=== PATIENT | male | born 1945 | race Native Hawaiian/Other Pacific Islander ===

== ENCOUNTER 2017-06-05 21:16 | Inpatient (IN) | payer MEDICARE, OTHER ==
[2017-06-05] MEDS ORDERED: Sodium Chloride 0.9% 1,000 ML IV ONE (21:36)
[2017-06-05] MEDS ORDERED: Pantoprazole 80 MG in Sodium Chloride 0.9% 100 ML IV STA (21:36)
--- NOTE | 2017-06-05 21:36 | C.PDOC ---
History Of Present Illness Patient presents to the ER with a complaint of bright red blood per rectum since yesterday. Patient is currently on xarelto for a-fib and notes he has a Hx of gastric ulcers. Denies fever, chills, nausea, or vomiting. Time Seen by Provider: 06/05/17 21:29 Chief Complaint (Nursing): GI Problem History Per: Patient History/Exam Limitations: no limitations Onset/Duration Of Symptoms: Days Current Symptoms Are (Timing): Still Present Number Of Bleeding Episodes: Multiple: Severity: Moderate Pain Scale Rating Of: 4 (Discomfort) Quality Of Discomfort: Unable To Describe Associated Symptoms: Rectal Bleeding. denies: Nausea, Vomiting Modifying Factors: None Recent travel outside of the [place]: No Past Medical History Reviewed: Historical Data, Nursing Documentation, Vital Signs Vital Signs: Last Vital Signs Temp 98.6 F 06/05/17 21:28 Pulse 67 06/05/17 22:50 Resp 20 06/05/17 22:50 BP 133/80 06/05/17 22:50 Pulse Ox 97 06/05/17 22:50 - Medical History PMH: Atrial Fibrillation, Gastrointestinal Ulcer, Hyperlipidemia, Kidney Stones (2002) Surgical History: No Surg Hx Family History: States: No Known Family Hx - Social History Hx Alcohol Use: No Hx Substance Use: No - Immunization History Hx Tetanus Toxoid Vaccination: No Hx Influenza Vaccination: No Hx Pneumococcal Vaccination: No Review Of Systems Constitutional: Negative for: Fever, Chills Eyes: Negative for: Redness ENT: Negative for: Throat Pain Cardiovascular: Negative for: Palpitations Respiratory: Negative for: Shortness of Breath Gastrointestinal: Positive for: Other (Rectal bleed). Negative for: Nausea, Vomiting Genitourinary: Negative for: Dysuria Musculoskeletal: Negative for: Back Pain Skin: Negative for: Rash, Lesions Neurological: Negative for: Weakness Psych: Negative for: Anxiety Physical Exam - Physical Exam Appears: Non-toxic Skin: Warm, Dry Head: Normacephalic Eye(s): bilateral: Normal Inspection, PERRL, EOMI Oral Mucosa: Moist Neck: Trachea Midline, Supple Chest: Symmetrical, No Tenderness Cardiovascular: Rhythm Regular Respiratory: No Rales, No Rhonchi, No Wheezing Gastrointestinal/Abdominal: Soft, No Tenderness Rectal: Heme Positive, No Hemorrhoids, No Tenderness, Other (Bright red blood in the vault) Back: No CVA Tenderness Extremity: Normal ROM Extremity: Bilateral: Atraumatic, Normal Color And Temperature, Normal ROM Pulses: Left Dorsalis Pedis: Normal, Right Dorsalis Pedis: Normal Neurological/Psych: Oriented x3, Normal Speech, Normal Cognition Gait: Steady ED Course And Treatment - Laboratory Results Result Diagrams: 06/05/17 21:44 06/05/17 21:44 ECG: Interpreted By Me, Viewed By Me ECG Rhythm: Sinus Rhythm (74), 1st Degree HB, Nonspecific Changes (pac's) O2 Sat by Pulse Oximetry: 97 (Room air) Pulse Ox Interpretation: Normal Progress Note: EKG, blood work, CXR, urinalysis, and occult blood stool test ordered. Protonix and IV fluids administered. Disposition Discussed With Dr.: Ki Bourne Comment: accepted the pt on his service and took over the care at 11PM Doctor Will See Patient In The: Hospital Counseled Patient/Family Regarding: Studies Performed, Diagnosis - Disposition Disposition: HOSPITALIZED Disposition Time: 21:36 Condition: FAIR Forms: [facility] (Dutch) - POA Present On Arrival: None - Clinical Impression Clinical Impression: Rectal bleed - Scribe Statement The provider has reviewed the documentation as recorded by the Scribe Bird Bonner All medical record entries made by the Scribe were at my direction and personally dictated by me. I have reviewed the chart and agree that the record accurately reflects my personal performance of the history, physical exam, medical decision making, and the department course for this patient. I have also personally directed, reviewed, and agree with the discharge instructions and disposition. Decision To Admit - Pt Status Changed To: Hospital Disposition Of: Observation - . Bed Request Type: Regular Admitting Physician: Ki Bourne Patient Diagnosis: Rectal bleed
[2017-06-05 21:50] LABS: BASO # 0.1 K/uL (0.0-0.2); BASO % 0.7 % (0.0-2.0); EOS # 0.1 K/uL (0.0-0.7); EOS % 1.6 % (0.0-4.0); HEMATOCRIT 40.3 % (35.0-51.0); LYMPH # 1.2 K/uL (1.0-4.3); LYMPH % 17.3 % (20.0-40.0); MEAN CELL VOLUME 71.1 fL (80.0-94.0); MEAN CORPUSCULAR HEMOGLOBIN 22.4 pg (27.0-31.0); MEAN CORPUSCULAR HGB CONC 31.4 g/dL (33.0-37.0); MEAN PLATELET VOLUME 8.2 fL (7.2-11.7); MONO # 0.6 K/uL (0.0-0.8); MONO % 8.1 % (0.0-10.0)
[2017-06-05 21:53] LABS: WHITE BLOOD COUNT 7.2 K/uL (4.8-10.8)
[2017-06-05 21:57] LABS: CHLORIDE 103 mmol/L (98-107); POTASSIUM 4.8 mmol/L (3.6-5.2); SODIUM 138 mmol/L (132-148)
[2017-06-05 21:59] LABS: BILIRUBIN,TOTAL 0.7 mg/dL (0.2-1.3); GFR AFRICAN-AMERICAN > 60
[2017-06-05 22:00] LABS: ALB/GLOB RATIO 1.4 (1.0-2.1); ALKALINE PHOSPHATASE 31 U/L (38-126); ALT/SGPT 31 U/L (21-72); AST/SGOT 31 U/L (17-59); BLOOD UREA NITROGEN 20 mg/dL (9-20); CALCIUM 9.1 mg/dl (8.6-10.4); CARBON DIOXIDE 25 mmol/L (22-30); GLUCOSE,RANDOM 97 mg/dL (75-110); INR 2.2
[2017-06-06 00:32] LABS: RBC URINE 3 /hpf (0-3); URINE BILIRUBIN NEGATIVE (NEGATIVE); URINE BLOOD 2+ (NEGATIVE); URINE COLOR Straw (YELLOW); URINE GLUCOSE (UA) NORMAL (Normal); URINE KETONE NEGATIVE (NEGATIVE); URINE LEUKOCYTE ESTERASE NEG Leu/uL (Negative); URINE PROTEIN NEGATIVE (NEGATIVE); URINE UROBILINOGEN NORMAL mg/dL (0.2-1.0); WBC URINE < 1 /hpf (0-5)
[2017-06-06 08:05] LABS: BASO % 0.8 % (0.0-2.0); EOS # 0.1 K/uL (0.0-0.7); EOS % 1.9 % (0.0-4.0); HEMATOCRIT 35.9 % (35.0-51.0); LYMPH # 1.4 K/uL (1.0-4.3); MEAN CELL VOLUME 71.1 fL (80.0-94.0); MEAN CORPUSCULAR HEMOGLOBIN 22.6 pg (27.0-31.0); MEAN CORPUSCULAR HGB CONC 31.8 g/dL (33.0-37.0); MEAN PLATELET VOLUME 8.2 fL (7.2-11.7); MONO # 0.4 K/uL (0.0-0.8); MONO % 8.3 % (0.0-10.0); RED CELL DISTRIBUTION WIDTH 14.9 % (11.5-14.5); WHITE BLOOD COUNT 5.2 K/uL (4.8-10.8)
--- NOTE | 2017-06-06 09:23 | RAD ---
PROCEDURE: CHEST RADIOGRAPH, 1 VIEW HISTORY: GI Bleeding COMPARISON: 06/05/2017 FINDINGS: LUNGS: Mild venous congestion. Left basilar airspace opacity. Small left pleural effusion. PLEURA: As above. CARDIOVASCULAR: Tortuous ectatic aorta. Mild cardiomegaly. OSSEOUS STRUCTURES: No significant abnormalities. VISUALIZED UPPER ABDOMEN: Normal. OTHER FINDINGS: None. IMPRESSION: Mild venous congestion. Left basilar airspace opacity. Small left pleural effusion.
[2017-06-06] MEDS ORDERED: Losartan 12.5 MG TAB PO SCH (10:00)
--- NOTE | 2017-06-06 10:26 | CP.PCM.CON ---
History of Present Illness - History of Present Illness History of Present Illness: This is a 71 year old man with rectal bleeding. Patient is known to me from a previous admission for melena 10/18/2003. At that time, he was found to have an ulcer in the duodenal bulb. A screening colonoscopy was recommended when he followed up in the office on 12/18/2003 but was never done. Patient presented to the ER with rectal bleeding yesterday: bright red blood on the toilet paper after the first bowel movement, then in the toilet bowl after the second bowel movement of the day. He denies having nausea, vomiting, loss of appetite, loss of weight, constipation. Over the past three weeks, he has had frequent soft bowel movements, up to three times daily. Review of Systems - Constitutional Constitutional: absent: Chills, Fever - EENT Nose/Mouth/Throat: absent: Sore Throat - Cardiovascular Cardiovascular: absent: Dyspnea, Leg Edema - Respiratory Respiratory: absent: Dyspnea - Gastrointestinal Gastrointestinal: Diarrhea, Hematochezia. absent: Constipation, Nausea, Vomiting - Genitourinary Genitourinary: absent: Dysuria - Musculoskeletal Musculoskeletal: absent: Back Pain - Integumentary Integumentary: absent: Rash Past Patient History - Infectious Disease Hx of Infectious Diseases: None - Past Medical History & Family History Past Medical History?: Yes - Past Social History Smoking Status: Never Smoked - CARDIAC Hx Atrial Fibrillation: Yes - RENAL Hx Kidney Stones: Yes (2002) - MUSCULOSKELETAL/RHEUMATOLOGICAL Hx Falls: No - GASTROINTESTINAL Hx Hemorrhoids: Yes Hx Ulcer: Yes (Duodenal ulcer 2003) Other/Comment: ulcer - PSYCHIATRIC Hx Substance Use: No - SURGICAL HISTORY Hx Appendectomy: Yes Other/Comment: Ablation 2005 - ANESTHESIA Hx Anesthesia: Yes Hx Anesthesia Reactions: No Meds Allergies/Adverse Reactions: Allergies Allergy/AdvReac Type Severity Reaction Status Date / Time No Known Allergies Allergy Verified 06/05/17 21:34 - Medications Medications: Current Medications Amlodipine Besylate (Norvasc) 5 mg PO DAILY [facility] Sodium Chloride (Sodium Chloride 0.9%) 1,000 mls @ 100 mls/hr IV .Q10H [facility] Losartan Potassium (Cozaar) 25 mg PO DAILY [facility] Pantoprazole Sodium (Protonix Inj) 40 mg IVP DAILY [facility] Propranolol HCl (Inderal) 10 mg PO TID [facility] Ranitidine HCl (Zantac Soln 5ml) 150 mg PO BID [facility] Physical Exam - Constitutional Appears: No Acute Distress - Head Exam Head Exam: ATRAUMATIC, NORMOCEPHALIC - Eye Exam Eye Exam: EOMI, PERRL - Neck Exam Neck exam: Negative for: Lymphadenopathy, Thyromegaly - Respiratory Exam Respiratory Exam: NORMAL BREATHING PATTERN. absent: Rales, Rhonchi, Wheezes - Cardiovascular Exam Cardiovascular Exam: REGULAR RHYTHM, +S1, +S2. absent: Gallop, Rubs, Systolic Murmur - GI/Abdominal Exam GI & Abdominal Exam: Normal Bowel Sounds, Soft. absent: Mass, Organomegaly, Tenderness - Rectal Exam Rectal Exam: Bloody Stool - Extremities Exam Extremities exam: Negative for: calf tenderness, pedal edema Results - Vital Signs Recent Vital Signs: Last Vital Signs Temp 97.8 F 06/06/17 04:50 Pulse 54 L 06/06/17 08:00 Resp 16 06/06/17 08:00 BP 112/76 06/06/17 08:00 Pulse Ox 98 06/06/17 08:00 - Labs Result Diagrams: 06/06/17 07:53 06/05/17 21:44 Labs: Laboratory Results - last 24 hr 06/05/17 06/05/17 06/05/17 21:44 21:44 21:44 WBC 7.2 D RBC 5.67 Hgb 12.7 Hct 40.3 MCV 71.1 L MCH 22.4 L MCHC 31.4 L RDW 15.0 H Plt Count 146 MPV 8.2 Neut % (Auto) 72.3 Lymph % (Auto) 17.3 L [place] % (Auto) 8.1 Eos % (Auto) 1.6 Baso % (Auto) 0.7 Neut # 5.2 Lymph # 1.2 Oliver # 0.6 Eos # 0.1 Baso # 0.1 PT 25.5 H INR 2.2 APTT 44 H Sodium Potassium Chloride Carbon Dioxide Anion Gap BUN Creatinine Est GFR ( Amer) Est GFR (Non-Af Amer) Random Glucose Calcium Total Bilirubin AST ALT Alkaline Phosphatase Total Protein Albumin Globulin Albumin/Globulin Ratio Lipase Urine Color Urine Clarity Urine pH Ur Specific [place] Urine Protein Urine Glucose (UA) Urine Ketones Urine Blood Urine Nitrate Urine Bilirubin Urine Urobilinogen Ur Leukocyte Esterase Urine WBC (Auto) Urine RBC (Auto) Stool Occult Blood Positive H Blood Type Antibody Screen 06/05/17 06/05/17 06/06/17 21:44 21:45 00:27 WBC RBC Hgb Hct MCV MCH MCHC RDW Plt Count MPV Neut % (Auto) Lymph % (Auto) [place] % (Auto) Eos % (Auto) Baso % (Auto) Neut # Lymph # [place] # Eos # Baso # PT INR APTT Sodium 138 Potassium 4.8 Chloride 103 Carbon Dioxide 25 Anion Gap 15 BUN 20 Creatinine 1.3 Est GFR ( Amer) > 60 Est GFR (Non-Af Amer) 54 Random Glucose 97 Calcium 9.1 Total Bilirubin 0.7 AST 31 ALT 31 Alkaline Phosphatase 31 L Total Protein 7.0 Albumin 4.1 Globulin 3.0 Albumin/Globulin Ratio 1.4 Lipase 94 Urine Color Straw Urine Clarity Clear Urine pH 6.0 Ur Specific [place] 1.010 Urine Protein Negative Urine Glucose (UA) Normal Urine Ketones Negative Urine Blood 2+ H Urine Nitrate Negative Urine Bilirubin Negative Urine Urobilinogen Normal Ur Leukocyte Esterase Neg Urine WBC (Auto) < 1 Urine RBC (Auto) 3 Stool Occult Blood Blood Type A POSITIVE Antibody Screen Negative 06/06/17 07:53 WBC 5.2 RBC 5.04 Hgb 11.4 L Hct 35.9 MCV 71.1 L MCH 22.6 L MCHC 31.8 L RDW 14.9 H Plt Count 133 MPV 8.2 Neut % (Auto) 62.0 Lymph % (Auto) 27.0 Oliver % (Auto) 8.3 Eos % (Auto) 1.9 Baso % (Auto) 0.8 Neut # 3.2 Lymph # 1.4 Oliver # 0.4 Eos # 0.1 Baso # 0.0 PT INR APTT Sodium Potassium Chloride Carbon Dioxide Anion Gap BUN Creatinine Est GFR ( Amer) Est GFR (Non-Af Amer) Random Glucose Calcium Total Bilirubin AST ALT Alkaline Phosphatase Total Protein Albumin Globulin Albumin/Globulin Ratio Lipase Urine Color Urine Clarity Urine pH Ur Specific [place] Urine Protein Urine Glucose (UA) Urine Ketones Urine Blood Urine Nitrate Urine Bilirubin Urine Urobilinogen Ur Leukocyte Esterase Urine WBC (Auto) Urine RBC (Auto) Stool Occult Blood Blood Type Antibody Screen Assessment & Plan - Assessment and Plan (Free Text) Assessment: Patient presented with rectal bleeding on xarelto. Etiology is unclear, could be related to hemorrhoids, diverticulosis, colitis, angiodysplasia. Will schedule colonoscopy.
[2017-06-06] MEDS: Sodium Chloride 0.9% 1,000 ML IV SCH ×4 (10:35→23:35)
[2017-06-06] MEDS: raNITIdine HCl 150 mg/10 ml Soln Cup PO SCH ×2 (10:35→17:17)
--- NOTE | 2017-06-06 23:41 | CP.PCM.HP ---
History of Present Illness - History of Present Illness History of Present Illness: 71 years old male complaining of bright red blood per rectum after a BM yesterday. Denies any chest pain, any nausea. Patient has not had a rectal bleeding since yesterday. He is known to have a hypertension, a chronic atrial fibrillation, a Hx of duodenal ulcer . Present on Admission - Present on Admission Any Indicators Present on Admission: No Review of Systems - Cardiovascular Cardiovascular: Irregular Heart Rhythm - Gastrointestinal Gastrointestinal: Hematochezia Past Patient History - Infectious Disease Hx of Infectious Diseases: None - Past Medical History & Family History Past Medical History?: Yes - Past Social History Smoking Status: Never Smoked Alcohol: None Home Situation {Lives}: With Family Domestic Violence: Negative - CARDIAC Hx Atrial Fibrillation: Yes - RENAL Hx Kidney Stones: Yes (2002) - MUSCULOSKELETAL/RHEUMATOLOGICAL Hx Falls: No - GASTROINTESTINAL Hx Hemorrhoids: Yes Hx Ulcer: Yes (Duodenal ulcer 2003) Other/Comment: ulcer - PSYCHIATRIC Hx Substance Use: No - SURGICAL HISTORY Hx Appendectomy: Yes Other/Comment: Ablation 2005 - ANESTHESIA Hx Anesthesia: Yes Hx Anesthesia Reactions: No Meds Allergies/Adverse Reactions: Allergies Allergy/AdvReac Type Severity Reaction Status Date / Time No Known Allergies Allergy Verified 06/05/17 21:34 Physical Exam - Constitutional Appears: No Acute Distress - Head Exam Head Exam: NORMAL INSPECTION - Eye Exam Eye Exam: Normal appearance - ENT Exam ENT Exam: Normal Exam - Neck Exam Neck exam: Positive for: Normal Inspection - Respiratory Exam Respiratory Exam: Clear to Auscultation Bilateral - Cardiovascular Exam Cardiovascular Exam: Irregular Rhythm - GI/Abdominal Exam GI & Abdominal Exam: Normal Bowel Sounds, Soft - Rectal Exam Rectal Exam: Bloody Stool - Exam Exam: NORMAL INSPECTION - Extremities Exam Extremities exam: Positive for: normal inspection - Back Exam Back exam: NORMAL INSPECTION - Neurological Exam Neurological exam: Alert, Normal Gait, Oriented x3 - Psychiatric Exam Psychiatric exam: Agitated - Skin Skin Exam: Dry, Intact, Normal Color, Warm Results - Vital Signs Recent Vital Signs: Last Vital Signs Temp 98 F 06/06/17 20:00 Pulse 52 L 06/06/17 16:00 Resp 16 06/06/17 16:00 BP 125/73 06/06/17 16:00 Pulse Ox 96 06/06/17 16:00 - Labs Result Diagrams: 06/06/17 07:53 06/05/17 21:44 Labs: Laboratory Results - last 24 hr 06/06/17 06/06/17 00:27 07:53 WBC 5.2 RBC 5.04 Hgb 11.4 L Hct 35.9 MCV 71.1 L MCH 22.6 L MCHC 31.8 L RDW 14.9 H Plt Count 133 MPV 8.2 Neut % (Auto) 62.0 Lymph % (Auto) 27.0 [place] % (Auto) 8.3 Eos % (Auto) 1.9 Baso % (Auto) 0.8 Neut # 3.2 Lymph # 1.4 [place] # 0.4 Eos # 0.1 Baso # 0.0 Urine Color Straw Urine Clarity Clear Urine pH 6.0 Ur Specific [place] 1.010 Urine Protein Negative Urine Glucose (UA) Normal Urine Ketones Negative Urine Blood 2+ H Urine Nitrate Negative Urine Bilirubin Negative Urine Urobilinogen Normal Ur Leukocyte Esterase Neg Urine WBC (Auto) < 1 Urine RBC (Auto) 3 Assessment & Plan (1) Rectal bleed Assessment and Plan: GI evaluation. Needs a colonoscopy. Status: Acute Decision To Admit - Pt Status Changed To: Hospital Disposition Of: Inpatient - Admit Certification Admit to Inpatient:: After my assessment, the patient will require hospitalization for at least two midnights. This is because of the severity of symptoms shown, intensity of services needed, and/or the medical risk in this patient being treated as an outpatient. - InPatient: Physician Admission Certification:: After my assessments, the patient requires hospitalization for at least 2 midnights. - . Bed Request Type: Telemetry Admitting Physician: Ki Bourne
[2017-06-07 06:43] LABS: BASO % 0.8 % (0.0-2.0); EOS # 0.3 K/uL (0.0-0.7); EOS % 5.7 % (0.0-4.0); HEMATOCRIT 37.4 % (35.0-51.0); LYMPH # 1.3 K/uL (1.0-4.3); MEAN CELL VOLUME 71.1 fL (80.0-94.0); MEAN CORPUSCULAR HEMOGLOBIN 22.8 pg (27.0-31.0); MEAN PLATELET VOLUME 7.9 fL (7.2-11.7); MONO # 0.5 K/uL (0.0-0.8); MONO % 10.7 % (0.0-10.0); RED CELL DISTRIBUTION WIDTH 15.2 % (11.5-14.5); WHITE BLOOD COUNT 4.6 K/uL (4.8-10.8)
[2017-06-07] MEDS: Sodium Chloride 0.9% 1,000 ML IV SCH ×3 (09:00→20:06)
--- NOTE | 2017-06-07 16:41 | CP.PCM.PN ---
Subjective - Date & Time of Evaluation Date of Evaluation: 06/07/17 Time of Evaluation: 16:39 - Subjective Subjective: Patient again noted bleeding with last bowel movement. He denies having nausea , vomiting, abdominal pain. Objective - Vital Signs/Intake and Output Vital Signs (last 24 hours): Temp Pulse Resp BP Pulse Ox 97.7 F 53 L 16 118/77 97 06/07/17 16:00 06/07/17 16:00 06/07/17 16:00 06/07/17 13:30 06/07/17 16:00 Intake and Output: 06/07/17 06/07/17 06:59 18:59 Intake Total 1200 2070 Output Total 1950 2080 Balance -750 -10 - Medications Medications: Current Medications Amlodipine Besylate (Norvasc) 5 mg PO Q24H [facility] Last Admin: 06/06/17 17:20 Dose: 5 mg Sodium Chloride (Sodium Chloride 0.9%) 1,000 mls @ 100 mls/hr IV .Q10H [facility] Last Admin: 06/07/17 09:00 Dose: 100 mls/hr Losartan Potassium (Cozaar) 25 mg PO DAILY [facility] Last Admin: 06/07/17 09:45 Dose: 25 mg Pantoprazole Sodium (Protonix Inj) 40 mg IVP DAILY [facility] Last Admin: 06/07/17 09:45 Dose: 40 mg Polyethylene Glycol/Electrolytes (Golytely) 2,000 ml PO ONCE ONE Stop: 06/08/17 06:01 Polyethylene Glycol/Electrolytes (Golytely) 2,000 ml PO ONCE ONE Stop: 06/07/17 18:01 Propranolol HCl (Inderal) 10 mg PO TID [facility] Last Admin: 06/06/17 17:16 Dose: Not Given - Labs Labs: 06/07/17 06:39 06/05/17 21:44 PT 25.5 SECONDS (9.7-12.2) H 06/05/17 21:44 INR 2.2 06/05/17 21:44 APTT 44 SECONDS (21-34) H 06/05/17 21:44 - Constitutional Appears: No Acute Distress - Head Exam Head Exam: ATRAUMATIC, NORMOCEPHALIC - Eye Exam Eye Exam: EOMI, PERRL - Neck Exam Neck Exam: absent: Lymphadenopathy, Thyromegaly - Respiratory Exam Respiratory Exam: NORMAL BREATHING PATTERN. absent: Rales, Rhonchi, Wheezes - Cardiovascular Exam Cardiovascular Exam: REGULAR RHYTHM, +S1, +S2. absent: Gallop, Rubs, Murmur - GI/Abdominal Exam GI & Abdominal Exam: Soft, Normal Bowel Sounds. absent: Tenderness, Mass, Organomegaly - Rectal Exam Rectal Exam: Deferred - Extremities Exam Extremities Exam: absent: Calf Tenderness, Pedal Edema Assessment and Plan (1) Lower GI bleed Assessment & Plan: Patient had another episode of bleeding, but the HGB is stable. Will schedule colonoscopy for tomorrow afternoon. Status: Acute
[2017-06-07] MEDS ORDERED: Peg-Electrolyte Oral Soln 4L (Golytely) PO ONE (18:00)
[2017-06-07 18:10] LABS: INR 1.2
--- NOTE | 2017-06-07 18:30 | CARD ---
APPROVED REPORT EKG Measurement Heart [id number] <Conclusion> Sinus rhythm with premature atrial complexes Otherwise normal ECG
--- NOTE | 2017-06-07 23:23 | CP.PCM.PN ---
Subjective - Date & Time of Evaluation Date of Evaluation: 06/07/17 Time of Evaluation: 20:30 - Subjective Subjective: Patient again had bloody stools today. No abdominal pain. Hgb stable. Scheduled for a colonoscopy in AM. Objective - Vital Signs/Intake and Output Vital Signs (last 24 hours): Temp Pulse Resp BP Pulse Ox 97.7 F 63 16 143/88 98 06/07/17 16:00 06/07/17 17:34 06/07/17 17:34 06/07/17 17:34 06/07/17 17:34 Intake and Output: 06/07/17 06/08/17 18:59 06:59 Intake Total 3270 1000 Output Total 2080 Balance 1190 1000 - Medications Medications: Current Medications Amlodipine Besylate (Norvasc) 5 mg PO Q24H [facility] Last Admin: 06/07/17 17:32 Dose: 5 mg Sodium Chloride (Sodium Chloride 0.9%) 1,000 mls @ 100 mls/hr IV .Q10H [facility] Last Admin: 06/07/17 17:00 Dose: Not Given Losartan Potassium (Cozaar) 25 mg PO DAILY [facility] Last Admin: 06/07/17 09:45 Dose: 25 mg Pantoprazole Sodium (Protonix Inj) 40 mg IVP DAILY [facility] Last Admin: 06/07/17 09:45 Dose: 40 mg Polyethylene Glycol/Electrolytes (Golytely) 2,000 ml PO ONCE ONE Stop: 06/08/17 06:01 Propranolol HCl (Inderal) 10 mg PO TID [facility] Last Admin: 06/06/17 17:16 Dose: Not Given - Labs Labs: 06/07/17 06:39 06/05/17 21:44 PT 13.3 SECONDS (9.7-12.2) H D 06/07/17 17:53 INR 1.2 D 06/07/17 17:53 APTT 44 SECONDS (21-34) H 06/05/17 21:44 - Constitutional Appears: No Acute Distress - Head Exam Head Exam: NORMAL INSPECTION, NORMOCEPHALIC - Eye Exam Eye Exam: Normal appearance - ENT Exam ENT Exam: Normal Exam - Neck Exam Neck Exam: Normal Inspection - Respiratory Exam Respiratory Exam: Clear to Ausculation Bilateral, NORMAL BREATHING PATTERN - Cardiovascular Exam Cardiovascular Exam: Irregular Rhythm - GI/Abdominal Exam GI & Abdominal Exam: Soft, Normal Bowel Sounds - Rectal Exam Additional comments: Maroon color stools. - Exam Exam: NORMAL INSPECTION - Extremities Exam Extremities Exam: Normal Inspection - Back Exam Back Exam: NORMAL INSPECTION - Neurological Exam Neurological Exam: Awake, Normal Gait, Oriented x3 - Psychiatric Exam Psychiatric exam: Anxious - Skin Skin Exam: Dry, Intact, Normal Color, Warm Assessment and Plan (1) Rectal bleed Assessment & Plan: For a colonoscopy in AM. Status: Acute - Assessment and Plan (Free Text) Assessment: To hold Xarelto due to rectal bleeding.
[2017-06-08] MEDS ORDERED: Peg-Electrolyte Oral Soln 4L (Golytely) PO ONE (06:00)
[2017-06-08] MEDS: Sodium Chloride 0.9% 1,000 ML IV SCH ×2 (06:20→11:44)
[2017-06-08 06:43] LABS: BASO % 0.7 % (0.0-2.0); EOS # 0.2 K/uL (0.0-0.7); EOS % 5.1 % (0.0-4.0); HEMATOCRIT 39.2 % (35.0-51.0); LYMPH # 1.3 K/uL (1.0-4.3); LYMPH % 30.6 % (20.0-40.0); MEAN CELL VOLUME 71.3 fL (80.0-94.0); MEAN CORPUSCULAR HEMOGLOBIN 22.6 pg (27.0-31.0); MEAN CORPUSCULAR HGB CONC 31.7 g/dL (33.0-37.0); MEAN PLATELET VOLUME 8.7 fL (7.2-11.7); MONO # 0.5 K/uL (0.0-0.8); MONO % 11.8 % (0.0-10.0); NRBC % 0.1 % (0.0-2.0); RED CELL DISTRIBUTION WIDTH 15.1 % (11.5-14.5); WHITE BLOOD COUNT 4.3 K/uL (4.8-10.8)
[2017-06-08 06:59] LABS: INR 1.2
[2017-06-08] MEDS ORDERED: Propofol 10 mg/ml Inj (20 ML) ONE (15:36)
[2017-06-08] MEDS ORDERED: Lactated Ringer's 1,000 ML IV ONE (15:42)
[2017-06-08 16:51] VITALS: O2SAT 100
[2017-06-08 17:12] VITALS: PULSE 75
[2017-06-08 22:25] VITALS: RESP 19; TEMP 98.2
[2017-06-08 22:27] VITALS: BP 145/85
--- NOTE | 2017-06-08 23:17 | CP.PCM.PN ---
Subjective - Date & Time of Evaluation Date of Evaluation: 06/08/17 Time of Evaluation: 21:00 - Subjective Subjective: Patient had colonoscopytoday. No active bleeding, but a biopsy was taken from a mass of the distal sigmoid. Also had 2 polyps resected. Will discharge home now. Will hold Xarelto until Tuesday when the result of the biopsy will be available. Objective - Vital Signs/Intake and Output Vital Signs (last 24 hours): Temp Pulse Resp BP Pulse Ox 98.2 F 75 19 145/85 100 06/08/17 21:00 06/08/17 17:11 06/08/17 21:00 06/08/17 21:00 06/08/17 21:00 Intake and Output: 06/08/17 06/09/17 18:59 06:59 Intake Total 980 120 Output Total 800 Balance 180 120 - Labs Labs: 06/08/17 06:36 06/05/17 21:44 PT 13.8 SECONDS (9.7-12.2) H 06/08/17 06:36 INR 1.2 06/08/17 06:36 APTT 33 SECONDS (21-34) D 06/08/17 06:36 - Constitutional Appears: Well, No Acute Distress - Head Exam Head Exam: NORMAL INSPECTION - Eye Exam Eye Exam: Normal appearance Pupil Exam: NORMAL ACCOMODATION - ENT Exam ENT Exam: Normal Exam - Neck Exam Neck Exam: Normal Inspection - Respiratory Exam Respiratory Exam: Clear to Ausculation Bilateral, NORMAL BREATHING PATTERN - Cardiovascular Exam Cardiovascular Exam: Irregular Rhythm - GI/Abdominal Exam GI & Abdominal Exam: Soft, Normal Bowel Sounds - Extremities Exam Extremities Exam: Normal Inspection - Back Exam Back Exam: NORMAL INSPECTION - Neurological Exam Neurological Exam: Alert, Awake, Normal Gait, Oriented x3 - Psychiatric Exam Psychiatric exam: Anxious - Skin Skin Exam: Dry, Intact, Normal Color, Warm Assessment and Plan (1) Rectal bleed Status: Resolved (2) Atrial fibrillation Assessment & Plan: To Xarelto because of rectal bleeding. Status: Acute (3) Hypertension Assessment & Plan: To continue Amlodipine and Losartan. Status: Chronic
--- NOTE | 2017-06-15 19:17 | CP.PCM.DIS ---
Provider - Provider Date of Admission: 06/05/17 22:55 Attending physician: Ki Bourne MD Primary care physician: Ki Bourne M.D. Consults: Dr Brennon Otero (GI). Time Spent in preparation of Discharge (in minutes): 30 Diagnosis - Discharge Diagnosis (1) Atrial fibrillation Status: Acute (2) Hypertension Status: Chronic Hospital Course - Lab Results Lab Results: Micro Results 06/06/17 08:57 Nose MRSA Culture (Admit) - Final MRSA NOT DETECTED Most Recent Lab Values WBC 4.3 K/uL (4.8-10.8) L 06/08/17 06:36 RBC 5.50 Mil/uL (4.40-5.90) 06/08/17 06:36 Hgb 12.4 g/dL (12.0-18.0) 06/08/17 06:36 Hct 39.2 % (35.0-51.0) 06/08/17 06:36 MCV 71.3 fL (80.0-94.0) L 06/08/17 06:36 MCH 22.6 pg (27.0-31.0) L 06/08/17 06:36 MCHC 31.7 g/dL (33.0-37.0) L 06/08/17 06:36 RDW 15.1 % (11.5-14.5) H 06/08/17 06:36 Plt Count 132 K/uL (130-400) 06/08/17 06:36 MPV 8.7 fL (7.2-11.7) 06/08/17 06:36 Neut % (Auto) 51.8 % (50.0-75.0) 06/08/17 06:36 Lymph % (Auto) 30.6 % (20.0-40.0) 06/08/17 06:36 [place] % (Auto) 11.8 % (0.0-10.0) H 06/08/17 06:36 Eos % (Auto) 5.1 % (0.0-4.0) H 06/08/17 06:36 Baso % (Auto) 0.7 % (0.0-2.0) 06/08/17 06:36 Neut # 2.2 K/uL (1.8-7.0) 06/08/17 06:36 Lymph # 1.3 K/uL (1.0-4.3) 06/08/17 06:36 [place] # 0.5 K/uL (0.0-0.8) 06/08/17 06:36 Eos # 0.2 K/uL (0.0-0.7) 06/08/17 06:36 Baso # 0.0 K/uL (0.0-0.2) 06/08/17 06:36 PT 13.8 SECONDS (9.7-12.2) H 06/08/17 06:36 INR 1.2 06/08/17 06:36 APTT 33 SECONDS (21-34) D 06/08/17 06:36 Sodium 138 mmol/L (132-148) 06/05/17 21:44 Potassium 4.8 mmol/L (3.6-5.2) 06/05/17 21:44 Chloride 103 mmol/L (98-107) 06/05/17 21:44 Carbon Dioxide 25 mmol/L (22-30) 06/05/17 21:44 Anion Gap 15 (10-20) 06/05/17 21:44 BUN 20 mg/dL (9-20) 06/05/17 21:44 Creatinine 1.3 MG/DL (0.8-1.5) 06/05/17 21:44 Est GFR ( Amer) > 60 06/05/17 21:44 Est GFR (Non-Af Amer) 54 06/05/17 21:44 Random Glucose 97 mg/dL (75-110) 06/05/17 21:44 Calcium 9.1 mg/dl (8.6-10.4) 06/05/17 21:44 Total Bilirubin 0.7 mg/dL (0.2-1.3) 06/05/17 21:44 AST 31 U/L (17-59) 06/05/17 21:44 ALT 31 U/L (21-72) 06/05/17 21:44 Alkaline Phosphatase 31 U/L (38-126) L 06/05/17 21:44 Total Protein 7.0 g/dL (6.3-8.3) 06/05/17 21:44 Albumin 4.1 g/dL (3.5-5.0) 06/05/17 21:44 Globulin 3.0 gm/dL (2.2-3.9) 06/05/17 21:44 Albumin/Globulin Ratio 1.4 (1.0-2.1) 06/05/17 21:44 Lipase 94 U/L (23-300) 06/05/17 21:44 Urine Color Straw (YELLOW) 06/06/17 00:27 Urine Clarity Clear (Clear) 06/06/17 00: Urine pH 6.0 (5.0-8.0) 06/06/17 00:27 Ur Specific [place] 1.010 (1.003-1.030) 06/06/17 00:27 Urine Protein Negative mg/dL (NEGATIVE) 06/06/17 00: Urine Glucose (UA) Normal mg/dL (Normal) 06/06/17 00: Urine Ketones Negative mg/dL (NEGATIVE) 06/06/17 00:27 Urine Blood 2+ (NEGATIVE) H 06/06/17 00:27 Urine Nitrate Negative (NEGATIVE) 06/06/17 00: Urine Bilirubin Negative (NEGATIVE) 06/06/17 00: Urine Urobilinogen Normal mg/dL (0.2-1.0) 06/06/17 00:27 Ur Leukocyte Esterase Neg [place]/uL (Negative) 06/06/17 00: Urine WBC (Auto) < 1 /hpf (0-5) 06/06/17 00:27 Urine RBC (Auto) 3 /hpf (0-3) 06/06/17 00:27 Stool Occult Blood Positive (NEGATIVE) H 06/05/17 21:44 Blood Type A POSITIVE 06/05/17 21:45 Antibody Screen Negative 06/05/17 21:45 - Hospital Course Hospital Course: 71 years old male complaining of a rectal bleeding for 2 days prior to hospitalization. He denies any abdominal pain, any rectal bleeding, any nausea, vomiting. He was taking Xarelto for a chronic atrial fibrillation. He is also known to have a hypertension. He denies any loss of weight, any change in bowel habits. Xarelto was held since admission. His vital signs and hgb remained stable. He underwent a colonoscopy on 06/08/[address] otero: no active bleeding was seen. 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 He tolerated the procedure well and was dischaged home on the same day. He will resume all his home medications ( Losartan, Amlodipine, Xarelto), and will call Dr Otero's office in 2 days for the result of the biopsies. - Date & Time of H&P Date of H&P: 06/06/17 Discharge Exam - Head Exam Head Exam: NORMAL INSPECTION - Eye Exam Eye Exam: Normal appearance - ENT Exam ENT Exam: Normal Exam - Neck Exam Neck exam: Normal Inspection - Respiratory Exam Respiratory Exam: Clear to PA & Lateral, NORMAL BREATHING PATTERN - Cardiovascular Exam Cardiovascular Exam: Irregular Rhythm, Systolic Murmur - GI/Abdominal Exam GI & Abdominal Exam: Normal Bowel Sounds, Unremarkable - Rectal Exam Rectal Exam: Deferred - Exam Exam: NORMAL INSPECTION - Extremities Exam Extremities exam: normal inspection - Back Exam Back exam: NORMAL INSPECTION - Neurological Exam Neurological exam: Alert, Normal Gait, Oriented x3 - Psychiatric Exam Psychiatric exam: Anxious - Skin Skin Exam: Dry, Intact, Normal Color, Warm Discharge Plan - Follow Up Plan Condition: FAIR Disposition: HOME/ ROUTINE Clinical Quality Measures - Date & Time of Discharge Summary Date of Discharge Summary: 06/15/17 Time of Discharge Summary: 19:17
== END 2017-06-08 22:05 | disposition home or self-care (01) | DRG 375 ==
LOC: C.ER 21:16 → INTOOBSV 22:55 → C.9E 22:55 → OBSVTOIN 22:55 → C.9I 06-06 04:10
PROVIDERS: ADMIT Internal Medicine Cardiovascular Disease; ATTEND Internal Medicine Cardiovascular Disease
PROC: 0DBM8ZX Excision of Descending Colon, Via Natural or Artificial Opening Endoscopic, Diagnostic (ICD-10-PCS; 2017-06-08)
PROC: 0DBL8ZX Excision of Transverse Colon, Via Natural or Artificial Opening Endoscopic, Diagnostic (ICD-10-PCS; 2017-06-08)
PROC: 0DBN8ZX Excision of Sigmoid Colon, Via Natural or Artificial Opening Endoscopic, Diagnostic (ICD-10-PCS; principal; 2017-06-08 15:00)
DX: C18.7 Malignant neoplasm of sigmoid colon (principal); Z68.1 Body mass index [BMI] 19.9 or less, adult; I48.2 Chronic atrial fibrillation; I10 Essential (primary) hypertension; E78.5 Hyperlipidemia, unspecified; Z79.01 Long term (current) use of anticoagulants; Z87.11 Personal history of peptic ulcer disease; Z87.442 Personal history of urinary calculi; Z90.49 Acquired absence of other specified parts of digestive tract; D12.4 Benign neoplasm of descending colon; D12.3 Benign neoplasm of transverse colon